=== PATIENT | female | born 1970 | race Caucasian/White ===

== ENCOUNTER 2024-01-05 03:27 | Inpatient (IN) | payer OTHER ==
[2024-01-05] VITALS (9 sets, daily range): BP systolic 94–101; BP diastolic 54–66; PULSE 82–98; RESP 16–22; TEMP 97.3; O2SAT 94–100
[~2024-01-05] VITALS: Ht 157.5 cm; Wt 83.0 kg
[2024-01-05 04:07] LABS: Basophils # (auto) 0 10 ^3/uL (0-0.2); Basophils % (auto) 0.2 % (0.0-2.0); Eosinophils # (auto) 0 10 ^3/uL (0-0.8); Eosinophils % (auto) 0.1 % (0.0-7.0); Hematocrit 36.2 % (36.0-46.0); Lymphocytes # (auto) 0.6 10 ^3/uL (0.4-5.4); Lymphocytes % (auto) 3.9 % (10.0-50.0); Mean Corpuscular Hemoglobin 30.6 pg (28.0-32.0); Mean Corpuscular Hgb Conc. 33.1 g/dL (32.0-36.0); Mean Corpuscular Volume 92.4 fL (80.0-100.0); Monocytes # (auto) 0.1 10 ^3/uL (0-1.3); Monocytes % (auto) 0.8 % (0.0-12.0); Neutrophils # (auto) 13.9 10 ^3/uL (1.6-8.6); Red Blood Cells 3.91 10^6/uL (4.0-5.20); Red Cell Distribution Width 14.7 % (11.8-14.3); White Blood Cell 14.6 10^3/uL (4.4-10.8)
[2024-01-05 04:17] LABS: Chloride 109 mmol/L (98-107); Potassium 3.7 mmol/L (3.5-5.1); Sodium 139 mmol/L (136-145)
[2024-01-05 04:18] LABS: Anion Gap 10 (5-15); Calcium 9.7 mg/dL (8.7-10.4); Carbon Dioxide 20 mmol/L (20-30)
[2024-01-05 04:23] LABS: BUN/Creatinine Ratio 8.7 (10.0-20.0); Blood Urea Nitrogen 9 mg/dL (9-23); Glucose 224 mg/dL (74-106)
[2024-01-05 04:38] LABS: Lactic Acid w/Reflex 3.2 mmol/L (0.4-2.0)
[2024-01-05] MEDS ORDERED: SODIUM CHLORIDE 0.9% 1,000 ML IV ONE ×2 (06:00)
[2024-01-05] MEDS: levoFLOXacin 500MG 100 ML IV ONE (06:22)
[2024-01-05] MEDS: FUROSEMIDE 40 MG/4 ML VIAL IV ONE (06:27)
[2024-01-05] MEDS ORDERED: NITROGLYCERIN 0.4 MG SL TAB SL PRN ×2 (09:30→09:45)
[2024-01-05] MEDS ORDERED: MORPHINE SULFATE INJ 2 MG/ml SYRG IV PRN ×4 (09:30→09:45)
[2024-01-05] MEDS ORDERED: DOCUSATE SOD 100 MG CAP PO PRN ×2 (09:30→09:45)
[2024-01-05] MEDS ORDERED: ONDANSETRON HCL 4 MG/2 ML VIAL IV PRN ×3 (09:30→11:15)
[2024-01-05] MEDS ORDERED: SPIR25TA8 PO (09:36)
[2024-01-05] MEDS ORDERED: WARF-66 PO (09:36)
[2024-01-05] MEDS ORDERED: TICA90TA PO (09:36)
[2024-01-05] MEDS ORDERED: SACU1TAB PO (09:36)
[2024-01-05] MEDS ORDERED: ATOR-47 PO (09:36)
[2024-01-05] MEDS ORDERED: CARV3.1240 PO (09:36)
[2024-01-05] MEDS ORDERED: TICAGRELOR 90 MG TAB PO SCH (10:00)
[2024-01-05] MEDS ORDERED: SACUBITRIL-VALSARTAN 24mg/26mg TAB PO SCH (10:00)
[2024-01-05] MEDS ORDERED: CARVEDILOL 3.125 MG TAB PO SCH (10:00)
[2024-01-05] MEDS ORDERED: levoFLOXacin 750MG 150 ML IV SCH ×2 (10:00→10:15)
[2024-01-05] MEDS ORDERED: SPIRONOLACTONE 25 MG TAB PO SCH (10:00)
[2024-01-05 10:10] LABS: INR 1.02 (0.9-1.15); Partial Thromboplastin Time 26.9 SEC (24.5-34.5); Prothrombin Time 10.8 sec (9.3-11.8)
[2024-01-05] MEDS: ALBUTEROL SULF 2.5 MG/0.5ML(0.5%) NEB SOLN NEB SCH (11:11)
[2024-01-05] MEDS: IPRATROPIUM BROM 0.5 MG/2.5ML INH SOL NEB SCH (11:11)
[2024-01-05 11:37] LABS: Magnesium 1.7 mg/dL (1.6-2.6)
[2024-01-05 11:45] LABS: Amphetamine Screen, Urine Neg (NEGATIVE)
[2024-01-05 11:46] LABS: Barbiturate Scree,Urine Neg (NEGATIVE); Benzodiazephine Screen, Urine Neg (NEGATIVE); Cannabinoid Screen, Urine Neg (NEGATIVE); Cocaine Screen, Urine Neg (NEGATIVE); Opiate Scree,Urine Neg (NEGATIVE); Phencyclidine Screen, Urine Neg (NEGATIVE)
[2024-01-05] MEDS ORDERED: IPRATROPIUM BROM 0.5 MG/2.5ML INH SOL NEB SCH (12:00)
[2024-01-05] MEDS ORDERED: ALBUTEROL SULF 2.5 MG/0.5ML(0.5%) NEB SOLN NEB SCH (12:00)
[2024-01-05] MEDS: WARFARIN SODIUM 5 MG TAB PO ONE (17:15)
[2024-01-05] MEDS ORDERED: FUROSEMIDE 40 MG/4 ML VIAL IV SCH (18:00)
[2024-01-05] MEDS: FUROSEMIDE 40 MG/4 ML VIAL IV SCH (18:28)
[2024-01-05] MEDS ORDERED: PATIENTS OWN MEDICATION (Atorvastatin Calcium 1 TAB) PO SCH ×2 (22:00)
[2024-01-05] MEDS: SACUBITRIL-VALSARTAN 24mg/26mg TAB PO SCH (22:00)
[2024-01-05] MEDS: CARVEDILOL 3.125 MG TAB PO SCH (22:00)
[2024-01-05] MEDS: TICAGRELOR 90 MG TAB PO SCH (22:44)
[2024-01-05] MEDS: ATORVASTATIN 20 MG TAB PO SCH (22:45)
[2024-01-05] MEDS: DOXYCYCLINE 100MG/250ML 250 ML IV SCH (22:48)
[2024-01-06] VITALS (17 sets, daily range): BP systolic 87–107; BP diastolic 46–66; PULSE 69–99; RESP 14–20; TEMP 97.7–98.8; O2SAT 92–100
[2024-01-06] MEDS: PANTOPRAZOLE 40 MG TAB PO SCH (05:51)
[2024-01-06 06:46] LABS: Alanine Aminotransferase 20 U/L (7-40); Alkaline Phosphatase 127 U/L (46-116); Calcium 9.4 mg/dL (8.5-10.1); Carbon Dioxide 27 mmol/L (20-30); Chloride 110 mmol/L (98-107); Glucose 104 mg/dL (74-106); INR 1.12 (0.9-1.15); Partial Thromboplastin Time 26.2 SEC (24.5-34.5); Potassium 3.2 mmol/L (3.5-5.1); Prothrombin Time 11.8 sec (9.3-11.8); Triglycerides 78 mg/dL (< 150)
[2024-01-06 06:47] LABS: Albumin 4.1 g/dL (3.2-4.8); Anion Gap 5 (5-15); Aspartate Aminotransferase 11 U/L (13-40); BUN/Creatinine Ratio 17.3 (10.0-20.0); Bilirubin, Total 0.7 mg/dL (0.2-1.0); Blood Urea Nitrogen 18 mg/dL (9-23); Cholesterol 130 mg/dL (< 200); HDL Cholesterol 37 mg/dL (40-59); LDL Cholesterol 81 mg/dL (< 100); Sodium 142 mmol/L (136-145); Total Protein 6.5 g/dL (5.7-8.2)
[2024-01-06 06:49] LABS: Basophils # (auto) 0 10 ^3/uL (0-0.2); Basophils % (auto) 0.4 % (0.0-2.0); Eosinophils # (auto) 0.2 10 ^3/uL (0-0.8); Hematocrit 32.1 % (36.0-46.0); Hemoglobin 10.8 g/dL (12.2-16.2); Lymphocytes # (auto) 2.6 10 ^3/uL (0.4-5.4); Lymphocytes % (auto) 28.7 % (10.0-50.0); Mean Corpuscular Hemoglobin 30.8 pg (28.0-32.0); Mean Corpuscular Hgb Conc. 33.8 g/dL (32.0-36.0); Mean Corpuscular Volume 91.1 fL (80.0-100.0); Monocytes # (auto) 0.7 10 ^3/uL (0-1.3); Monocytes % (auto) 7.8 % (0.0-12.0); Neutrophils # (auto) 5.6 10 ^3/uL (1.6-8.6); Neutrophils % (auto) 61.1 % (37.0-80.0); Nucleated Red Blood Cells % 0.1 %; Red Blood Cells 3.53 10^6/uL (4.0-5.20); Red Cell Distribution Width 14.5 % (11.8-14.3); White Blood Cell 9.2 10^3/uL (4.4-10.8)
[2024-01-06] MEDS: SPIRONOLACTONE 25 MG TAB PO SCH (09:41)
[2024-01-06] MEDS: POTASSIUM CHL 20 Meq TABLET PO ONE (14:51)
[2024-01-06] MEDS ORDERED: DULO60CA41 PO (15:56)
[2024-01-06] MEDS ORDERED: TRAZ-227 PO (15:56)
[2024-01-06] MEDS: WARFARIN SODIUM 5 MG TAB PO ONE (17:59)
[2024-01-06] MEDS: SACUBITRIL-VALSARTAN 24mg/26mg TAB PO SCH (22:15)
[2024-01-07] VITALS (11 sets, daily range): BP systolic 93–110; BP diastolic 52–61; PULSE 68–88; RESP 18–20; TEMP 36.7; O2SAT 96–100
[2024-01-07 06:31] LABS: Anion Gap 6 (5-15); Carbon Dioxide 25 mmol/L (20-30); Chloride 110 mmol/L (98-107); Potassium 4.1 mmol/L (3.5-5.1); Sodium 141 mmol/L (136-145)
[2024-01-07 06:32] LABS: Calcium 9.6 mg/dL (8.7-10.4)
[2024-01-07 06:37] LABS: Blood Urea Nitrogen 16 mg/dL (9-23); Glucose 101 mg/dL (74-106)
[2024-01-07 06:43] LABS: Basophils # (auto) 0 10 ^3/uL (0-0.2); Basophils % (auto) 0.5 % (0.0-2.0); Eosinophils # (auto) 0.3 10 ^3/uL (0-0.8); Eosinophils % (auto) 4.3 % (0.0-7.0); Hematocrit 33.7 % (36.0-46.0); Hemoglobin 11.4 g/dL (12.2-16.2); Lymphocytes # (auto) 2.2 10 ^3/uL (0.4-5.4); Lymphocytes % (auto) 33.2 % (10.0-50.0); Mean Corpuscular Hemoglobin 31.3 pg (28.0-32.0); Monocytes # (auto) 0.6 10 ^3/uL (0-1.3); Monocytes % (auto) 9.1 % (0.0-12.0); Neutrophils # (auto) 3.4 10 ^3/uL (1.6-8.6); Neutrophils % (auto) 52.9 % (37.0-80.0); Nucleated Red Blood Cells % 0.1 %; Red Blood Cells 3.66 10^6/uL (4.0-5.20); Red Cell Distribution Width 14.6 % (11.8-14.3); White Blood Cell 6.5 10^3/uL (4.4-10.8)
[2024-01-07 06:55] LABS: INR 1.16 (0.9-1.15); Partial Thromboplastin Time 26.2 SEC (24.5-34.5); Prothrombin Time 12.2 sec (9.3-11.8)
[2024-01-07] MEDS: SPIRONOLACTONE 25 MG TAB PO SCH (10:00)
[2024-01-07] MEDS: EMPAGLIFLOZIN 10 MG TAB PO SCH (10:19)
[2024-01-07] MEDS ORDERED: EMPA1TAB PO (10:38)
[2024-01-07] MEDS ORDERED: WARFARIN SODIUM 2.5 MG TAB PO ONE (17:00)
== END 2024-01-07 15:30 | disposition home or self-care (01) | DRG 871 ==
LOC: ER 03:27 → TELE 09:50 → TELE-EAST 22:14
PROVIDERS: ADMIT Nurse Practitioner Family; ATTEND Internal Medicine Geriatric Medicine
DX: A41.9 Sepsis, unspecified organism (principal); I50.23 Acute on chronic systolic (congestive) heart failure; J96.01 Acute respiratory failure with hypoxia; J44.1 Chronic obstructive pulmonary disease with (acute) exacerbation; J81.1 Chronic pulmonary edema; J90 Pleural effusion, not elsewhere classified; E66.9 Obesity, unspecified; E78.5 Hyperlipidemia, unspecified; I11.0 Hypertensive heart disease with heart failure; I25.10 Atherosclerotic heart disease of native coronary artery without angina pectoris; F17.210 Nicotine dependence, cigarettes, uncomplicated; I25.5 Ischemic cardiomyopathy; Z95.5 Presence of coronary angioplasty implant and graft; Z95.2 Presence of prosthetic heart valve; I25.2 Old myocardial infarction; Z88.0 Allergy status to penicillin; Z88.6 Allergy status to analgesic agent; Z86.73 Personal history of transient ischemic attack (TIA), and cerebral infarction without residual deficits; Z90.49 Acquired absence of other specified parts of digestive tract; Z89.022 Acquired absence of left finger(s); Z68.33 Body mass index [BMI] 33.0-33.9, adult
CPT/HCPCS: 36415; 71045; 71275; 80048; 80053; 80061; 80307; 82040; 83036; 83605; 83735; 83880; 84443; 84484; 85025; 85379; 85610; 85730; 87040; 87081; 93005; 93306; 94640; 96365; 96375; G0378; J1956; J3490